=== PATIENT | male | born 1965 | race Caucasian/White ===

== ENCOUNTER 2024-02-01 13:11 | Inpatient (IN) ==
[2024-02-01] MEDS: SODIUM CHLORIDE 0.9% 1,000 ML IV STA (14:07)
--- NOTE | 2024-02-01 14:11 | Emergency Department Note ---
Impression & Plan Diarrhea, Chronic lymphocytic leukemia, JESSICA (acute kidney injury) ED Provider Note Diagnosis: Diarrhea, acute kidney injury, CLL Disposition: Admit CHIEF COMPLAINT: Diarrhea HPI: Patient is a 58-year-old male with history of CLL presenting with complaint of diarrhea and abdominal pain. Patient states at work multiple people had a GI bug last week and he thought he had just caught the same thing as they did. Patient states that his diarrhea has continued multiple times per day without blood present in it. Patient having crampy abdominal pain. Patient denies any fevers. Patient denies any abdominal surgeries prior. PAST MEDICAL HISTORY: See Below PAST SURGICAL HISTORY: See Below SOCIAL HISTORY: See Below HOME MEDICATIONS: See Below ALLERGIES: See Below VITALS: See Below PHYSICAL EXAMINATION: GENERAL: Well appearing, well nourished, NAD, non-toxic. EYE EXAM: Normal conjunctiva. OROPHARYNX: Moist mucus membranes. Grossly normal dentition. NECK: Supple, LUNGS: Clear to auscultation. Normal chest wall mechanics. HEART: NSR ABDOMEN: Abdomen soft, diffuse tenderness BACK: No CVA TTP. SKIN: No rashes and no bruising. UPPER EXTREMITIES: Upper extremities are grossly normal LOWER EXTREMITIES: Grossly normal, no edema. NEURO EXAM: A&O x3,, normal speech, moves all 4 extremities PSYCH: Cooperative MEDICAL DECISION MAKING: History obtained from: Patient ER Course: Patient is a 58-year-old male presenting with complaint of diarrhea. Patient has been having symptoms for the past 2 weeks time. Patient states multiple episodes per day without blood present. Patient states that he has CLL and is on oral chemotherapy daily. Patient states sick contacts of multiple people at work but they are really sick for 2 to 3 days and his symptoms have persisted. Patient having diffuse abdominal pain. Patient denies any prior abdominal surgeries. Patient has a white count of 20 and a creatinine of 2.8 today. I attempted to talk with case management team to look to see if there are any old records we can get from [employer] [facility] [facility] but there were none present when they look. I do not have a established baseline of these levels. Patient CT scan shows gastroenteritis state as well as start of potential partial small bowel obstruction which is less likely due to the patient having so many episodes of diarrhea over the past 2 weeks time. Patient is having no vomiting which makes this less likely as well. Patient had stool sample sent which are not resulted yet. Case discussed with Dr. Hsieh of hospital service accepts patient further treatment and evaluation Labs (independently interpreted) are significant for: Leukocytosis, elevated creatinine Medications given: Normal saline bolus Consultants: Hospitalist Triage Nursing notes reviewed and agree them. Vital Signs: reviewed and remarkable for: no significant abnormalities Past Med/Surg History Medical History A-fib HX- follows w/ Dr Caro [facility]- last visit ?2022 CLL (chronic lymphocytic leukemia) hx chemo- on Imbruvica daily, follows w/ Dr Wang, [facility] GERD (gastroesophageal reflux disease) History of COVID-2020- NO SYMPTOMS HTN (hypertension) Surgical History History of radiofrequency ablation procedure for cardiac arrhythmia afib- 2021- [facility] History of removal of Port-a-Cath Hx of colonoscopy Hx of lymph node biopsy Hx of tooth extraction Family History Other No family history of adverse response to anesthesia Social History Smoking Status: Never smoker Second Hand Exposure: No; Do You Dip or Chew Tobacco: Yes (CHEWS OCCASIONALLY- ADVISED); Hx Alcohol Use: No Hx Substance Use: No Preferred Language: Hebrew Communication Ability: Effective 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 Beliefs That Will Affect Care: None Current Living Situation: Alone Feels Safe at Home: Yes Assistive Devices: Denture - Upper, Denture - Lower and Glasses Allergies Allergies Allergy/AdvReac Type Severity Reaction Status Date / Time No Known Allergies Allergy Verified 03/08/23 11:22 Home Meds Home Medications Medication Instructions Recorded Confirmed aspirin 325 mg tablet 325 mg PO DAILY Pain 02/26/23 03/08/23 furosemide 20 mg tablet 20 mg PO [facility] 02/26/23 02/01/24 ibrutinib 420 mg tablet (Imbruvica) 420 mg PO HS 02/26/23 03/08/23 metoprolol succinate 100 mg 100 mg PO [facility] 02/26/23 02/01/24 tablet,extended release 24 hr multivitamin 1 tab PO [facility] 02/26/23 02/01/24 omeprazole 20 mg tablet,delayed 20 mg PO QAM Acid Reflux 02/26/23 02/01/24 release sacubitril 24 mg-valsartan 26 mg 1 tab PO BID 02/26/23 03/08/23 tablet (Entresto) spironolactone 25 mg tablet 25 mg PO QAM 02/26/23 02/01/24 vitamin B complex 1 tab PO QAM 02/26/23 03/08/23 ferrous sulfate 325 mg (65 mg 325 mg PO 3XWK 02/01/24 02/01/24 iron) tablet (FeroSul) ibrutinib 140 mg capsule 420 mg PO DAILY 02/01/24 02/01/24 (Imbruvica) sulfamethoxazole 800 1 tab PO MOWEFR 02/01/24 02/01/24 mg-trimethoprim 160 mg tablet vitamin B complex 1 cap PO DAILY 02/01/24 02/01/24 Results & Data (ED) Vital Signs Vital Signs - 24 hr 02/01/24 13:13 02/01/24 13:28 02/01/24 14:04 Temperature 36.5 C 36.6 C Temperature Source Temporal Artery Scan Oral Pulse Rate 71 61 Pulse Rate [Apical] 67 Pulse Rhythm Regular Pulse Strength Normal Respiratory Rate 17 18 Respiratory Effort / Characteristics Non-Labored Non-Labored Spontaneous Respiratory Depth Normal Normal Respiratory Pattern Regular Regular Blood Pressure 114/65 Blood Pressure [Right Arm] 101/55 L Blood Pressure Mean 81 Blood Pressure Mean [Right Arm] 70 Blood Pressure Position Sitting Blood Pressure Position [Right Arm] Lying Pulse Oximetry 100 99 Oxygen Delivery Method Room Air Room Air Sepsis Recent Fever Within 48 Hours No Sepsis New/Unexplained Change in Mental Status No Sepsis Action Taken by Nursing No Action Required 02/01/24 14:06 Temperature Temperature Source Pulse Rate 61 Pulse Rate [Apical] Pulse Rhythm Pulse Strength Respiratory Rate Respiratory Effort / Characteristics Respiratory Depth Respiratory Pattern Blood Pressure Blood Pressure [Right Arm] Blood Pressure Mean Blood Pressure Mean [Right Arm] Blood Pressure Position Blood Pressure Position [Right Arm] Pulse Oximetry 98 Oxygen Delivery Method Room Air Sepsis Recent Fever Within 48 Hours Sepsis New/Unexplained Change in Mental Status Sepsis Action Taken by Nursing Laboratory Data 02/01/24 13:34 02/01/24 13:34 Lab Results 02/01/24 Range/Units 13:34 WBC 20.11 H (4.8-10.8) K/ul RBC 4.73 (4.70-6.10) M/uL Hgb 13.1 L (14.0-18.0) g/dl Hct 39.1 L (42.0-52.0) % MCV 82.7 (80.0-100.0) fL MCH 27.7 (25.0-34.0) pg MCHC 33.5 (32.0-36.0) g/dL RDW Std Deviation 46.1 (36.4-46.3) fL RDW Coeff of Kayy 15.3 H (11.5-14.5) % Plt Count 253 (130-400) K/uL MPV 9.8 (9.4-12.4) fL Immature Gran % (Auto) 1.7 % Neut % (Auto) 77.4 % Lymph % (Auto) 16.2 % Ransom % (Auto) 4.0 % Eos % (Auto) 0.3 % Baso % (Auto) 0.4 % Neut # (Auto) 15.57 H (1.40-6.50) K/uL Lymph # (Auto) 3.26 (1.20-3.40) K/uL Ransom # (Auto) 0.80 H (0.11-0.59) K/uL Eos # (Auto) 0.06 (0.00-0.50) K/uL Baso # (Auto) 0.08 (0.00-0.20) K/uL Immature Gran # (Auto) 0.34 H (0.01-0.20) K/uL Sodium 139 (136-145) mmol/L Potassium 3.8 (3.5-5.1) mmol/L Chloride 112 H (98-107) mmol/L Carbon Dioxide 15 L (21-32) mmol/L Anion Gap 12 H (3-11) BUN 38 H (6-23) mg/dl Creatinine 2.89 H (0.6-1.4) mg/dl Est Cr Clr Drug Dosing 29.8 ml/min Est GFR ( Amer) 26.2 ml/min Est GFR (Non-Af Amer) 22.6 ml/min BUN/Creatinine Ratio 13.1 (10-20) Glucose 80 (70-99(Fasting)) mg/dl Calcium 9.3 (8.6-10.3) mg/dl Total Bilirubin 0.4 (0.2-1.0) mg/dl AST 8 L (13-39) U/L ALT 6 L (7-52) U/L Alkaline Phosphatase 171 H (34-104) U/L Total Protein 6.5 (6.0-8.3) gm/dl Albumin 4.0 (3.4-5.0) gm/dl Globulin 2.5 (2.5-4.0) gm/dl Albumin/Globulin Ratio 1.6 (0.9-2) Lipase 41 (11-82) U/L Administered Medications Discontinued Medications Sodium Chloride (Nss) 1,000 mls @ 999 mls/hr IV .Q1H1M STA Stop: 02/01/24 14:52 Last Infusion: 02/01/24 16:05 Dose: Infused Documented By: Admin: 02/01/24 14:07 Dose: 999 mls/hr Documented By: ARLINE Imaging Data Radiologist's Impression: Abdomen/Pelvis CT 02/01/24 15:[address] WITHOUT CONTRAST CT DOSE: 1191.22 mGy.cm HISTORY: diarrhea for 2 weeks, TECHNIQUE: Multiaxial CT images of the abdomen and pelvis were performed without contrast. A dose lowering technique was utilized adhering to the principles of ALARA. COMPARISON STUDY: None. FINDINGS: Tree-in-bud nodular opacities within the lung bases most pronounced within the left lower lobe. No pneumoperitoneum. No pneumatosis. No acute fractures. Small fat-containing left femoral hernia. A small diverticulum at the third portion of the duodenum. The unenhanced liver, gallbladder, pancreas, spleen, and adrenal glands unremarkable. No renal or ureteral stones. No hydronephrosis. There is a 1 cm exophytic hypodense lesion within the lower pole of the right kidney on image 202 and a 7 mm exophytic hypodense lesion within the lower pole the left kidney on image 164. The 1 cm right renal lesion favors a cyst but is technically indeterminate on this noncontrast study. The 7 mm lesion within the left kidney does not clearly represent a simple cyst. Therefore, follow-up renal ultrasound or dedicated renal MRI is recommended for further evaluation of the left renal lesion. Normal caliber abdominal aorta. Mild retroperitoneal lymphadenopathy with the dominant lymph nodes measuring 1 cm short axis diameter. Tiny fat-containing umbilical hernia. No significant pelvic lymphadenopathy. Bladder wall thickening is likely due to underdistention and chronic outlet obstruction from the enlarged prostate gland. No pelvic free fluid. No bowel wall thickening. Fluid-filled nondilated loops of large and small bowel seen throughout the abdomen. Single prominent loop of small bowel within the deep pelvis on image 321 measures 2.9 cm. However, no transition point to suggest a small bowel obstruction at this time. There is a 5 mm appendicolith within the mid appendix. No evidence for acute appendicitis. IMPRESSION: 1. Fluid-filled loops of large and small bowel seen throughout the abdomen. This suggests a gastroenteritis/diarrheal illness. 2. A prominent loop of small bowel within the deep pelvis without a definite transition point. A partial small bowel obstruction is considered less likely but not entirely excluded. If the patient's symptoms progress consider follow-up abdomen and pelvis CT. 3. Mild retroperitoneal lymphadenopathy which is nonspecific. This could be related to the suspected gastroenteritis. 3 month abdomen and pelvis CT follow- up recommended to ensure resolution. 4. A 7 mm indeterminate lesion within the left kidney. Follow-up nonemergent dedicated renal ultrasound or renal MRI is recommended for further evaluation. 5. Tree-in-bud nodular opacities within the lung bases most pronounced within the left lower lobe. This suggests a mild chronic infectious bronchiolitis. 6. Additional findings as described above. ACT 112: Positive. There are findings on this exam that require communication between the performing entity and the patient following Patient Test Result Information Act ([place] Act 112) guidelines. Electronically signed by: Romel Bess M.D. 02/01/2024 4:04 PM Discharge Plan Visit Data Chief Complaint: Diarrhea Stated Complaint: DIARRHEA ED Provider: Bobby Sapp Discharge Problem: Diarrhea, Chronic lymphocytic leukemia, JESSICA (acute kidney injury) Forms Stand Alone Forms: [facility] Prescriptions Prescriptions: No Action multivitamin Tablet 1 tab PO QAM aspirin 325 mg Tablet 325 mg PO DAILY metoprolol succinate 100 mg Tablet Extended Release 24 Hr 100 mg PO QAM spironolactone 25 mg Tablet 25 mg PO QAM vitamin B complex Tablet 1 tab PO QAM furosemide 20 mg Tablet 20 mg PO QAM omeprazole 20 mg Tablet,Delayed Release (Dr/Ec) 20 mg PO QAM Entresto 24-26 mg Tablet 1 tab PO BID Imbruvica 420 mg Tablet 420 mg PO HS ferrous sulfate [FeroSul] 325 mg (65 mg iron) tablet 325 mg PO 3XWK Imbruvica 140 mg capsule 420 mg PO DAILY sulfamethoxazole-trimethoprim 800-160 mg tablet 1 tab PO MOWEFR vitamin B complex [Super B Complex] Capsule 1 cap PO DAILY Referrals Referrals: Anne Marie Mendoza CRNP [Primary Care Provider] -
[2024-02-01 14:15] LABS: Basophils # (auto) 0.08 K/uL (0.00-0.20); Basophils % (auto) 0.4 %; Eosinophils # (auto) 0.06 K/uL (0.00-0.50); Eosinophils % (auto) 0.3 %; Hematocrit (blood only) 39.1 % (42.0-52.0); Hemoglobin 13.1 g/dl (14.0-18.0); Immature Granulocytes # (auto) 0.34 K/uL (0.01-0.20); Immature Granulocytes % (auto) 1.7 %; Lymphocytes # (auto) 3.26 K/uL (1.20-3.40); Lymphocytes % (auto) 16.2 %; Mean Corpuscular Hemoglobin 27.7 pg (25.0-34.0); Mean Corpuscular Hgb Conc 33.5 g/dL (32.0-36.0); Mean Corpuscular Volume 82.7 fL (80.0-100.0); Mean Platelet Volume 9.8 fL (9.4-12.4); Neutrophils # (auto) 15.57 K/uL (1.40-6.50); Neutrophils % (auto) 77.4 %; Platelet Count 253 K/uL (130-400); RDW Coefficient of Variation 15.3 % (11.5-14.5); RDW Standard Deviation 46.1 fL (36.4-46.3); Red Blood Count 4.73 M/uL (4.70-6.10); White Blood Count 20.11 K/ul (4.8-10.8)
[2024-02-01 14:33] LABS: Albumin Globulin Ratio 1.6 (0.9-2); BUN Creatinine Ratio 13.1 (10-20); Bilirubin,Total 0.4 mg/dl (0.2-1.0); Calcium 9.3 mg/dl (8.6-10.3); Creatinine Clr Calc Pharmacy 29.8 ml/min; Est GFR (African American) 26.2 ml/min; Est GFR (Non-African American) 22.6 ml/min; Globulin 2.5 gm/dl (2.5-4.0); Potassium 3.8 mmol/L (3.5-5.1); Total Protein 6.5 gm/dl (6.0-8.3)
--- NOTE | 2024-02-01 16:06 | CT Scan Report ---
ABDOMEN AND PELVIS CT WITHOUT CONTRAST CT DOSE: 1191.22 mGy.cm HISTORY: diarrhea for 2 weeks, TECHNIQUE: Multiaxial CT images of the abdomen and pelvis were performed without contrast. A dose lo wering technique was utilized adhering to the principles of ALARA. COMPARISON STUDY: None. FINDINGS: Tree-in-bud nodular opacities within the lung bases most pronounced within the left lower l obe. No pneumoperitoneum. No pneumatosis. No acute fractures. Small fat-containing left femoral herni a. A small diverticulum at the third portion of the duodenum. The unenhanced liver, gallbladder, panc reas, spleen, and adrenal glands unremarkable. No renal or ureteral stones. No hydronephrosis. There is a 1 cm exophytic hypodense lesion within the lower pole of the right kidney on image 202 and a 7 m m exophytic hypodense lesion within the lower pole the left kidney on image 164. The 1 cm right renal lesion favors a cyst but is technically indeterminate on this noncontrast study. The 7 mm lesion wit hin the left kidney does not clearly represent a simple cyst. Therefore, follow-up renal ultrasound o r dedicated renal MRI is recommended for further evaluation of the left renal lesion. Normal caliber abdominal aorta. Mild retroperitoneal lymphadenopathy with the dominant lymph nodes measuring 1 cm sh ort axis diameter. Tiny fat-containing umbilical hernia. No significant pelvic lymphadenopathy. Bladd er wall thickening is likely due to underdistention and chronic outlet obstruction from the enlarged prostate gland. No pelvic free fluid. No bowel wall thickening. Fluid-filled nondilated loops of larg e and small bowel seen throughout the abdomen. Single prominent loop of small bowel within the deep p [place] on image 321 measures 2.9 cm. However, no transition point to suggest a small bowel obstruction at this time. There is a 5 mm appendicolith within the mid appendix. No evidence for acute appendici tis. IMPRESSION: 1. Fluid-filled loops of large and small bowel seen throughout the abdomen. This suggests a gastroent eritis/diarrheal illness. 2. A prominent loop of small bowel within the deep pelvis without a definite transition point. A part ial small bowel obstruction is considered less likely but not entirely excluded. If the patient's sym ptoms progress consider follow-up abdomen and pelvis CT. 3. Mild retroperitoneal lymphadenopathy which is nonspecific. This could be related to the suspected gastroenteritis. 3 month abdomen and pelvis CT follow-up recommended to ensure resolution. 4. A 7 mm indeterminate lesion within the left kidney. Follow-up nonemergent dedicated renal ultrasou nd or renal MRI is recommended for further evaluation. 5. Tree-in-bud nodular opacities within the lung bases most pronounced within the left lower lobe. Th is suggests a mild chronic infectious bronchiolitis. 6. Additional findings as described above. ACT 112: Positive. There are findings on this exam that require communication between the performing entity and the patient following Patient Test Result Information Act ([place] Act 112) guidelines. Electronically signed by: Romel Bess M.D. 02/01/2024 4:04 PM
[2024-02-01] MEDS: SODIUM CHLORIDE 0.9% 1,000 ML IV ONE (16:49)
[2024-02-01 17:20] LABS: Appearance Urine Clear (Clear); Bacteria Urine Automated None Seen (None Seen); Bilirubin Urine Negative (Negative); Blood Urine Negative (Negative); Cast Urine Automated >20 /lpf (0-2); Color Urine Dark Yellow; Glucose Urine UA Negative (Negative); Ketones Urine Negative (Negative); Leukocyte Esterase Urine Negative (Negative); Nitrite Urine Negative (Negative); Protein Urine 1+ (Negative); RBC Urine Automated 0-2 /hpf (0-2); Specific Gravity Urine 1.019 (1.000-1.030); Urobilinogen Urine Negative (Negative); WBC Urine Automated 0-5 /hpf (0-5); White Blood Cell Casts Urine Present /lpf (None Prsent); pH Urine 5.5 (4.5-7.5)
--- NOTE | 2024-02-01 17:32 | History & Physical Report ---
Date of Service February 01, 2024 Assessment & Plan (1) Acute diarrhea: Plan: Has been having diarrhea since sixth of this month up to 6 times a day Has had nausea and vomited once so far Significant anorexia and has not been eating or drinking Stool culture will be sent Likely secondary to viral infectious diarrhea Will rule out any bacterial causes If no causes are found he will be given Imodium to control diarrhea Electrolytes and fluid replacement (2) JESSICA (acute kidney injury): Plan: Has acute renal failure with BUN and creatinine to be 38/2.89 Dehydration is the likely cause and is complicated by use of Entresto, spironolactone, furosemide and Bactrim Above medications will be on hold Will give adequate IV fluid Monitor PRP-if the condition does not improve will need nephro evaluation (3) CLL (chronic lymphocytic leukemia): Plan: Chronic lymphatic leukemia On oral treatment Sees Dr. Wang in [place]-likely not a [facility] provider Will continue the current management and the diarrhea is over (4) History of atrial fibrillation: Plan: History of atrial fibrillation is status post ablation years ago Has been on beta-brianda and will continue IV metoprolol if he cannot take anything orally (5) SBO (small bowel obstruction): Plan: CT of the abdomen did show distention of the small and large bowel with ileitis No significant point of obstruction Will keep him n.p.o. Electrolyte supplementation if needed May need surgery evaluation if condition does not improve GERD Continue with PPI Hypertension Blood pressure on the lower side Will try to continue metoprolol for now And hold other medications DVT prophylaxis Lovenox CODE STATUS Full History of Present Illness Chief Complaint: Diarrhea has since 01/22/2024 with weakness , tiredness and abdominal pain with bloating Primary Care Provider: NYLA Contreras He is a 58 years old male with significant past medical history of atrial fibrillation status post ablation, CLL with ongoing oral chemotherapy, GERD, hypertension apparently has been complaining of diarrhea since sixth of this month. His diarrhea seems to be watery with some discomfort/pain in the abdomen and some distention. The diarrhea could be up to 8 times a day and he has anorexia with nausea and vomited once with it. No history of blood in the stool, no fever and or chills no history of travel and no history of any other persons involved with diarrhea that he mixes with. Has been eating and drinking that way he is supposed to be. Denies any chest pain, palpitation or shortness of breath. CT of the abdomen did show possible ileitis with intestinal distention and noted to have acute renal failure likely secondary to dehydration and complicated by use of ARB, spironolactone and also Bactrim. Allergies Allergy/AdvReac Type Severity Reaction Status Date / Time amoxicillin AdvReac Diarrhea Verified 02/01/24 16:51 Home Medications Medication Instructions Recorded Confirmed Type aspirin 325 mg tablet 325 mg PO DAILY Pain 02/26/23 02/01/24 History furosemide 20 mg tablet 20 mg PO QAM 02/26/23 02/01/24 History metoprolol succinate 100 mg 100 mg PO QAM 02/26/23 02/01/24 History tablet,extended release 24 hr multivitamin 1 tab PO QAM 02/26/23 02/01/24 History omeprazole 20 mg tablet,delayed 20 mg PO QAM Acid Reflux 02/26/23 02/01/24 History release sacubitril 24 mg-valsartan 26 mg 1 tab PO BID 02/26/23 02/01/24 History tablet (Entresto) spironolactone 25 mg tablet 25 mg PO QAM 02/26/23 02/01/24 History ferrous sulfate 325 mg (65 mg 325 mg PO 3XWK 02/01/24 02/01/24 History iron) tablet (FeroSul) ibrutinib 140 mg capsule 420 mg PO DAILY 02/01/24 02/01/24 History (Imbruvica) sulfamethoxazole 800 1 tab PO MOWEFR 02/01/24 02/01/24 History mg-trimethoprim 160 mg tablet vitamin B complex 1 cap PO DAILY 02/01/24 02/01/24 History Past Med/Surg History Medical History A-fib HX- follows w/ Dr Caro [facility]- last visit ?2022 CLL (chronic lymphocytic leukemia) hx chemo- on Imbruvica daily, follows w/ Dr Wang [facility] GERD (gastroesophageal reflux disease) History of COVID-2020- NO SYMPTOMS HTN (hypertension) Surgical History History of radiofrequency ablation procedure for cardiac arrhythmia afib- 2021- [facility] [place] History of removal of Port-a-Cath Hx of colonoscopy Hx of lymph node biopsy Hx of tooth extraction Family History Other No family history of adverse response to anesthesia Social History Smoking Status: Never smoker Second Hand Exposure: No; Do You Dip or Chew Tobacco: Yes (CHEWS OCCASIONALLY- ADVISED); Hx Alcohol Use: No Hx Substance Use: No Preferred Language: Syriac Communication Ability: Effective Registered Nurse Renal Required: No Beliefs That Will Affect Care: None Current Living Situation: Alone Feels Safe at Home: Yes Assistive Devices: Denture - Upper, Denture - Lower and Glasses Review of Systems Review of Systems: All systems reviewed and are unremarkable except mentioned in H&P Physical Exam Physical Exam: Sitting at the edge of the bed without any acute distress Constitutional: well developed, well nourished, + ill appearing and average body habitus Eyes: PERRL, conjunctivae normal, anicteric sclerae ENMT: external ear and nose normal, oropharynx normal Neck: trachea midline, no thyromegaly Cardiovascular: Rate/Rhythm: regular rate and regular rhythm; not tachycardic Heart Sounds: normal S1 and normal S2; no murmur Extremities: no edema Gastrointestinal (Abdomen): Inspection/Auscultation: + abdomen distended; + abnormal bowel sounds (Decreased) Percussion/Palpation: abdomen soft; abdomen nontender and no guarding Musculoskeletal: No acute arthritis involving any of the joint Neurologic: normal touch/pain/proprioception and moves all extremities; no focal motor deficits Psychiatric: A+Ox3, euthymic affect Lymphatic: no cervical or axillary lymphadenopathy Results & Data Results & Data Vital Signs (Past 12 Hours) Vital Signs Temp Pulse Pulse Resp BP BP Pulse Ox 02/01/24 16:47 57 L 18 99/60 L 100 02/01/24 14:06 61 98 02/01/24 14:04 61 02/01/24 13:28 36.6 C 67 18 101/55 L 99 02/01/24 13:13 36.5 C 71 17 114/65 100 O2 Del Method 02/01/24 16:47 Room Air 02/01/24 14:06 Room Air 02/01/24 14:04 02/01/24 13:28 Room Air 02/01/24 13:13 Room Air Laboratory Results Short CBC 02/01/24 Range/Units 13:34 WBC 20.11 H (4.8-10.8) K/ul Hgb 13.1 L (14.0-18.0) g/dl Hct 39.1 L (42.0-52.0) % Plt Count 253 (130-400) K/uL BMP 02/01/24 13:34 Sodium 139 Potassium 3.8 Chloride 112 H Carbon Dioxide 15 L BUN 38 H Creatinine 2.89 H Glucose 80 Calcium 9.3 Liver Function 02/01/24 Range/Units 13:34 Total Bilirubin 0.4 (0.2-1.0) mg/dl AST 8 L (13-39) U/L ALT 6 L (7-52) U/L Alkaline Phosphatase 171 H (34-104) U/L Albumin 4.0 (3.4-5.0) gm/dl Urine 02/01/24 Range/Units 16:01 Urine Color Dark Yellow Urine Appearance Clear (Clear) Urine pH 5.5 (4.5-7.5) Ur Specific [place] 1.019 (1.000-1.030) Urine Protein 1+ H (Negative) Urine Glucose (UA) Negative (Negative) Medications Administered Current Inpatient Medications Enoxaparin Sodium (Enoxaparin Inj 30 Mg/0.3 Ml Syr) 30 mg SQ QAM DALILA Stop: 03/02/24 17:29 Sodium Chloride (Nss) 1,000 mls @ 999 mls/hr IV .Q1H1M ONE Stop: 02/01/24 17:41 Last Admin: 02/01/24 16:49 Dose: 999 mls/hr Code Status & VTE Plan VTE Prophylaxis Plan VTE Prophylaxis will be ordered: Yes
[2024-02-01] MEDS ORDERED: ONDANSETRON INJ 2 MG/ML 2 ML VIAL IV PRN (17:33)
[2024-02-01 17:34] LABS: Adenovirus F 40/41 PCR Not Detected (NotDetected); Astrovirus PCR Not Detected (NotDetected); Campylobacter PCR Not Detected (NotDetected); Cryptosporidium PCR Not Detected (NotDetected); Cyclospora cayetanensis PCR Not Detected (NotDetected); Entamoeba histolytica PCR Not Detected (NotDetected); Enteroaggregative E.coli(EAEC) Not Detected (NotDetected); Enteropathogenic E.coli (EPEC) Not Detected (NotDetected); Enterotoxigenic E.coli (ETEC) Not Detected (NotDetected); Giardia lamblia PCR Not Detected (NotDetected); Norovirus GI/GII PCR Not Detected (NotDetected); Plesiomonas shigelloides PCR Not Detected (NotDetected); Rotavirus A PCR Not Detected (NotDetected); Salmonella PCR Not Detected (NotDetected); Sapovirus PCR Not Detected (NotDetected); Shiga-like Toxin E.coli (STEC) Not Detected (NotDetected); Shigella/Enteroinvasive E.coli Not Detected (NotDetected); Vibrio cholerae PCR Not Detected (NotDetected); Vibrio species PCR Not Detected (NotDetected); Yersinia enterocolitica PCR Not Detected (NotDetected)
[2024-02-01 18:12] LABS: Magnesium 1.8 mg/dl (1.7-2.4); Phosphorus 5.8 mg/dl (2.5-4.9)
[2024-02-01] MEDS: METOPROLOL TARTRATE 1 MG/ML VIAL IV SCH (18:31)
[2024-02-01] MEDS: LACTATED RINGER'S 1,000 ML IV SCH (18:32)
[2024-02-01] MEDS ORDERED: METOPROLOL TARTRATE 1 MG/ML VIAL IV PRN (19:39)
[2024-02-01] MEDS: ENOXAPARIN INJ 30 MG/0.3 ML SYR SQ SCH (22:11)
[2024-02-02 05:56] LABS: Basophils # (auto) 0.08 K/uL (0.00-0.20); Basophils % (auto) 0.6 %; Eosinophils # (auto) 0.08 K/uL (0.00-0.50); Eosinophils % (auto) 0.6 %; Hematocrit (blood only) 34.5 % (42.0-52.0); Hemoglobin 11.6 g/dl (14.0-18.0); Immature Granulocytes # (auto) 0.14 K/uL (0.01-0.20); Lymphocytes # (auto) 3.47 K/uL (1.20-3.40); Lymphocytes % (auto) 24.4 %; Mean Corpuscular Hemoglobin 27.4 pg (25.0-34.0); Mean Corpuscular Hgb Conc 33.6 g/dL (32.0-36.0); Mean Corpuscular Volume 81.6 fL (80.0-100.0); Mean Platelet Volume 9.4 fL (9.4-12.4); Monocytes # (auto) 0.61 K/uL (0.11-0.59); Monocytes % (auto) 4.3 %; Neutrophils # (auto) 9.86 K/uL (1.40-6.50); Neutrophils % (auto) 69.1 %; Platelet Count 209 K/uL (130-400); RDW Coefficient of Variation 15.2 % (11.5-14.5); RDW Standard Deviation 45.2 fL (36.4-46.3); Red Blood Count 4.23 M/uL (4.70-6.10); White Blood Count 14.24 K/ul (4.8-10.8)
[2024-02-02 06:11] LABS: BUN Creatinine Ratio 17.3 (10-20); Calcium 8.6 mg/dl (8.6-10.3); Creatinine Clr Calc Pharmacy 53.2 ml/min; Est GFR (African American) 52.7 ml/min; Est GFR (Non-African American) 45.5 ml/min; Magnesium 1.6 mg/dl (1.7-2.4); Phosphorus 3.5 mg/dl (2.5-4.9); Potassium 3.3 mmol/L (3.5-5.1)
[2024-02-02] MEDS: MULTIVITAMIN TAB PO SCH (07:14)
[2024-02-02] MEDS: PANTOprazole 40 MG TAB PO SCH (07:14)
[2024-02-02] MEDS: METOPROLOL SUCC 50MG EXT REL TAB PO SCH (07:23)
[2024-02-02] MEDS: VITAMIN B COMPLEX TAB PO SCH (08:14)
[2024-02-02] MEDS ORDERED: LOPERAMIDE HCL 2 MG CAP PO PRN (08:30)
[2024-02-02] MEDS: MAGNESIUM SULFATE / D5W 1 GM/100 ML BAG IV ONE (08:51)
[2024-02-02] MEDS: POTASSIUM CHLORIDE CRTAB 20 MEQ TABCR PO ONE (08:51)
--- NOTE | 2024-02-02 09:35 | XRay Report ---
KUB CLINICAL HISTORY: Generalized abdominal pain. Obstruction. FINDINGS: 3 AP, portable, supine abdominal radiographs are correlated with abdominal CT dated 02/01/20 24. There is persistent gaseous distention of the small bowel loops which measure up to 3 cm diameter . Gas is seen throughout the colon. No evidence of intraperitoneal free air is identified on these [place] images. There are no abnormal abdominal calcifications. The bony structures appear intact. Moder ate lumbosacral spondylosis is observed. IMPRESSION: There is persistent gaseous distention of the small bowel loops as above. When correlated with yesterday's CT scan this could represent a nonspecific enteritis. No high-grade bowel obstructi on is identified. A partial small bowel obstruction is not excluded and clinical correlation will be required. Electronically signed by: Rolando Leone M.D. 02/02/2024 9:33 AM
--- NOTE | 2024-02-02 10:40 | Electrocardiogram Report ---
Test Reason : Blood Pressure : / mmHG Vent. Rate : 057 BPM Atrial Rate : 057 BPM P-R Int : 156 ms QRS Dur : 106 ms QT Int : 446 ms P-R-T Axes : 081 025 007 degrees QTc Int : 434 ms Sinus bradycardia Nonspecific T wave abnormality Abnormal ECG When compared with ECG of 27-MAR-2015 17:01, Nonspecific T wave abnormality now evident in Anterior leads Confirmed by Tarik Gant ([id number]) on 02/02/2024 10:40:00 AM Referred By: REFERRED SELF Confirmed By:Michael Gant
--- NOTE | 2024-02-02 12:14 | Surgery Consultation ---
Date of Consultation February 02, 2024 Assessment & Plan (1) Acute diarrhea: His CT and X-ray images and results were personally viewed and interpreted by myself There is no transition point and his clinical picture is more of a gastroenteritis He has no emesis and has been having BM's Clears and advance to low fiber diet for dinner or breakfast tomorrow No plans for any surgical intervention History of Present Illness Reason for Consultation: Small bowel obstruction Attending Physician: Devin Castrejon MD History of Present Illness This is a 58 yo male who was admitted yesterday with gastroenteritis versus PSBO. He states for the past couple weeks he has had diarrhea and about a week ago he had one episode of emesis. He states something was going around at work as many people had similar symptoms. He has never had abdominal surgery. He is feeling better today without any abdominal pain. He has had two BM's today. De nies any fevers or chills. No melena or hematochezia. Allergies Allergy/AdvReac Type Severity Reaction Status Date / Time amoxicillin AdvReac Diarrhea Verified 02/01/24 16:51 Home Medications Medication Instructions Recorded Confirmed Type aspirin 325 mg tablet 325 mg PO DAILY Pain 02/26/23 02/01/24 History furosemide 20 mg tablet 20 mg PO QAM 02/26/23 02/01/24 History metoprolol succinate 100 mg 100 mg PO QAM 02/26/23 02/01/24 History tablet,extended release 24 hr multivitamin 1 tab PO QAM 02/26/23 02/01/24 History omeprazole 20 mg tablet,delayed 20 mg PO QAM Acid Reflux 02/26/23 02/01/24 History release sacubitril 24 mg-valsartan 26 mg 1 tab PO BID 02/26/23 02/01/24 History tablet (Entresto) spironolactone 25 mg tablet 25 mg PO QAM 02/26/23 02/01/24 History ferrous sulfate 325 mg (65 mg 325 mg PO 3XWK 02/01/24 02/01/24 History iron) tablet (FeroSul) ibrutinib 140 mg capsule 420 mg PO DAILY 02/01/24 02/01/24 History (Imbruvica) sulfamethoxazole 800 1 tab PO MOWEFR 02/01/24 02/01/24 History mg-trimethoprim 160 mg tablet vitamin B complex 1 cap PO DAILY 02/01/24 02/01/24 History Patient History Medical History History of COVID-2020- NO SYMPTOMS GERD (gastroesophageal reflux disease) HTN (hypertension) A-fib HX- follows w/ Dr Caro [facility]- last visit ?2022 CLL (chronic lymphocytic leukemia) hx chemo- on Imbruvica daily, follows w/ [facility] Surgical History Hx of lymph node biopsy History of removal of Port-a-Cath Hx of colonoscopy Hx of tooth extraction History of radiofrequency ablation procedure for cardiac arrhythmia afib- 2021- [facility] Family History Other No family history of adverse response to anesthesia Social History Smoking Status: Never smoker Second Hand Exposure: No; Do You Dip or Chew Tobacco: Yes (CHEWS OCCASIONALLY- ADVISED); Hx Alcohol Use: No Hx Substance Use: No Preferred Language: Canadian Communication Ability: Effective 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 Beliefs That Will Affect Care: None Current Living Situation: Alone Other Information That Helps Us Care for You: No Feels Safe at Home: Yes Safety Concerns: Feels Safe At This Time Assistive Devices: None Review of Systems Constitutional: no fever and no chills Eyes: no blind spots and no worsening vision Ear, Nose, Mouth, Throat: no ear pain and no hearing loss Respiratory: no cough and no dyspnea Cardiovascular: no chest pain and no dyspnea on exertion Gastrointestinal: + diarrhea/loose stools; no abdominal pa in, no nausea, no vomiting, no constipation, no blood in stools and no melena Genitourinary: no dysuria or no urinary incontinence Musculoskeletal: no back pain and no neck pain Integumentary: no acne and no skin ulcer Neurologic: no headache(s) and no memory loss Psychiatric: no behavioral changes and no anhedonia Hematologic / Lymphatic: no easy bleeding and no easy bruising Physical Exam Constitutional: WD/WN, vitals as above Eyes: PERRL, conjunctivae normal, anicteric sclerae ENMT: external ear and nose normal, oropharynx normal Neck: trachea midline, no thyromegaly Respiratory: normal respiratory effort, lungs clear to auscultation Cardiovascular: RRR, no murmur, no edema Gastrointestinal (Abdomen): Inspection/Auscultation: abdomen normal to inspection; abdomen not distended Percussion/Palpation: abdomen soft; abdomen nontender and no guarding Musculoskeletal: no cyanosis or clubbing, extremities motor strength 5/5 Skin: no rashes, warm and dry Neurologic: PERRL, EOMI, accommodation nl, no face palsy, no dysarthria Psychiatric: A+Ox3, euthymic affect Results & Data Vital Signs (Past 12 Hours) Vital Signs Temp Pulse Pulse Resp BP Pulse Ox O2 Del Method 02/02/24 11:30 36.3 C L 66 16 121/71 100 Room Air 02/02/24 08:00 57 L 02/02/24 07:21 36.5 C 59 L 18 112/67 100 Room Air 02/02/24 04:00 36.7 C 61 20 96/57 L 95 Room Air 02/02/24 00:47 56 L PG Care Time/CCT Total # of Minutes Spent Total Time Spent with Patient: Total time spent is greater than 50% in coordination of care (as documented) at patient's floor/unit and/or counseling patient: Coding Level of Care Code 72100 IN/OBS CONSULT LVL 5,80M Diagnoses Acute diarrhea R19.7
--- NOTE | 2024-02-02 14:17 | Ultrasound Report ---
RENAL ULTRASOUND HISTORY: Follow-up renal lesion. Abnormal CT. COMPARISON: Abdomen and pelvis CT 02/01/2024. FINDINGS: Right kidney: 11.2 cm. There is a 1 cm exophytic lower pole cyst. No solid renal masses identified. N o hydronephrosis. Normal corticomedullary differentiation and cortical thickness. Left kidney: 10.3 cm. There is 9 mm lower pole lesion which also favors a cyst. This corresponds to t he CT abnormality. No hydronephrosis. Normal corticomedullary differentiation and cortical thickness. Bladder: No bladder wall thickening. The bilateral ureteral jets were not identified. The prostate gl and is enlarged. IMPRESSION: 1. A 9 mm left renal lower pole lesion which favors a cyst. This corresponds to the CT abnormality. O ne year follow-up is recommended to ensure stability due to its small size. 2. A 1 cm right lower pole cyst. 3. Prostatomegaly. ACT 112: Negative or not required by law. Electronically signed by: Romel Bess M.D. 02/02/2024 2:16 PM
--- NOTE | 2024-02-02 17:00 | Hospitalist Progress Note ---
Date of Service February 02, 2024 Assessment & Plan (1) Acute diarrhea: Plan: Diarrhea Unclear etiology DD: Gastroenteritis, ? Secondary to home medications --CT ABD: Fluid-filled loops of large and small bowel seen throughout the abdomen. This suggests a gastroenteritis/diarrheal illness. A prominent loop of small bowel within the deep pelvis without a definite transition point. A partial small bowel obstruction is considered less likely but not entirely excluded. If the patient's symptoms progress consider follow-up abdomen and pelvis CT. Mild retroperitoneal lymphadenopathy which is nonspecific. This could be related to the suspected gastroenteritis. 3 month abdomen and pelvis CT follow-up recommended to ensure resolution. -- Stool PCR negative --Stool for C. difficile negative Continue IV fluids Consider GI evaluation if needed Imodium as needed Will need repeat CT as outpatient to ensure resolution of lymphadenopathy (2) JESSICA (acute kidney injury): Plan: Likely prerenal secondary to GI losses Hold home diuretics, Entresto Also hold Bactrim for now Renal function slowly improving Continue IV fluids Avoid nephrotoxic agents as able (3) CLL (chronic lymphocytic leukemia): Plan: Chronic lymphatic leukemia On oral treatment Sees Dr. Wang oncology as outpatient Resume home medications as able (4) History of atrial fibrillation: Plan: History of atrial fibrillation S/P ablation years ago Continue metoprolol Has been on beta-brianda and will continue Hypomagnesemia Replete electrolytes as needed (5) SBO (small bowel obstruction): Plan: Suspected partial SBO CT ABD as above Appreciate surgery input Advance diet as able Monitor Renal cyst Renal USD:9 mm left renal lower pole lesion which favors a cyst. This cor responds to the CT abnormality. One year follow-up is recommended to ensure stability due to its small size. A 1 cm right lower pole cyst. Follow-up as outpatient GERD Continue with PPI Hypertension Continue metoprolol Monitor DVT prophylaxis Lovenox SQ CODE STATUS Full Code Admission and Anticipated Discharge Date Admission Date: February 01, 2024 Subjective Patient is seen and examined at bedside States having 2 bowel movements today Abdominal pain much improved Denies any nausea, vomiting, chest pain, dyspnea No other complaints Renal function slowly improving Review of Systems Review of Systems: All systems reviewed & are unremarkable except as noted in Subjective Physical Exam Physical Exam: Physical Exam: Vitals signs as noted above General Appearance:Moderately built and nourished, no apparent distress Head: normocephalic, Atraumatic Eyes: normal inspection, EOMI Neck: supple, Trachea midline Respiratory/Chest: Normal breath sounds, CTA, No accessory muscle use Cardiovascular: S1, S2, No murmur Abdomen/GI:Soft, Non tender, Bowel sounds present Extremities/Musculoskeletal:normal inspection, no edema Neurologic/Psych:AAOX3, grossly no focal neurological deficits Skin: normal color, warm Results & Data Results & Data Vital Signs (Past 12 Hours) Vital Signs Temp Pulse Pulse Resp BP Pulse Ox O2 Del Method 02/02/24 15:35 59 L 02/02/24 14:58 36.1 C L 60 16 122/72 99 Room Air 02/02/24 11:30 36.3 C L 66 16 121/71 100 Room Air 02/02/24 08:00 57 L 02/02/24 07:21 36.5 C 59 L 18 112/67 100 Room Air Laboratory Results Short CBC 02/02/24 Range/Units 04:51 WBC 14.24 H (4.8-10.8) K/ul Hgb 11.6 L (14.0-18.0) g/dl Hct 34.5 L (42.0-52.0) % Plt Count 209 (130-400) K/uL BMP 02/02/24 04:51 Sodium 139 Potassium 3.3 L Chloride 114 H Carbon Dioxide 16 L BUN 28 H Creatinine 1.62 H D Glucose 85 Calcium 8.6 Urine 02/01/24 Range/Units 16:01 Urine Color Dark Yellow Urine Appearance Clear (Clear) Urine pH 5.5 (4.5-7.5) Ur Specific [place] 1.019 (1.000-1.030) Urine Protein 1+ H (Negative) Urine Glucose (UA) Negative (Negative)
[2024-02-03 04:15] LABS: Hemoglobin 9.5 g/dl (14.0-18.0); Mean Corpuscular Hemoglobin 27.4 pg (25.0-34.0); Mean Corpuscular Hgb Conc 33.9 g/dL (32.0-36.0); Mean Corpuscular Volume 80.7 fL (80.0-100.0); Mean Platelet Volume 9.4 fL (9.4-12.4); Platelet Count 151 K/uL (130-400); RDW Standard Deviation 43.8 fL (36.4-46.3); Red Blood Count 3.47 M/uL (4.70-6.10); White Blood Count 5.65 K/ul (4.8-10.8)
[2024-02-03 04:32] LABS: Calcium 8.1 mg/dl (8.6-10.3); Creatinine Clr Calc Pharmacy 86.2 ml/min; Est GFR (African American) 94.4 ml/min; Est GFR (Non-African American) 81.4 ml/min; Magnesium 1.5 mg/dl (1.7-2.4); Potassium 3.3 mmol/L (3.5-5.1)
[2024-02-03] MEDS: POTASSIUM CHLORIDE CRTAB 20 MEQ TABCR PO STA (05:59)
[2024-02-03] MEDS: MAGNESIUM SULFATE / D5W 1 GM/100 ML BAG IV ONE (05:59)
[2024-02-03] MEDS: METOPROLOL SUCC 50MG EXT REL TAB PO STA (06:19)
[2024-02-03] MEDS: ENOXAPARIN INJ 40 MG/0.4 ML SYR SQ SCH (07:41)
[2024-02-03] MEDS: METOPROLOL SUCC 50MG EXT REL TAB PO SCH (07:42)
--- NOTE | 2024-02-03 08:39 | Surgery Progress Note ---
Date of Service February 03, 2024 Assessment & Plan (1) Diarrhea: Plan: He has no signs of obstruction clinically Advance diet as tolerated he can be discharged from a surgical standpoint Surgery will sign off, please call with any questions or concerns Admission and Anticipated Discharge Date Admission Date: February 01, 2024 Subjective Patient seen and examined. He still having some bowel movements. No nausea or vomiting. No abdominal pain. Afebrile. Review of Systems Constitutional: no fever and no chills Physical Exam Constitutional: WD/WN, vitals as above Gastrointestinal (Abdomen): Inspection/Auscultation: abdomen normal to inspection; abdomen not distended Percussion/Palpation: abdomen soft; abdomen nontender and no guarding Results & Data Vital Signs (Past 12 Hours) Vital Signs Temp Pulse Pulse Resp BP Pulse Ox O2 Del Method 02/03/24 07:36 36.7 C 60 20 120/64 97 Room Air 02/03/24 03:52 36.7 C 61 18 120/57 L 98 Room Air 02/03/24 01:28 58 L 02/02/24 23:14 36.3 C L 60 18 114/62 98 Room Air PG Care Time/CCT Total # of Minutes Spent Total Time Spent with Patient: Total time spent is greater than 50% in coordination of care (as documented) at patient's floor/unit and/or counseling patient: Coding Level of Care Code 97799 SUB INP/OBS CARE 11/11MIN Diagnoses Diarrhea R19.7
[2024-02-03] MEDS: MAGNESIUM CHLORIDE W/CALCIUM 64MG DELAYED REL TAB PO SCH (10:36)
--- NOTE | 2024-02-03 13:41 | Hospitalist Progress Note ---
Date of Service February 03, 2024 Assessment & Plan (1) Acute diarrhea: Plan: Diarrhea Unclear etiology DD: Gastroenteritis, ? Secondary to home medications --CT ABD: Fluid-filled loops of large and small bowel seen throughout the abdomen. This suggests a gastroenteritis/diarrheal illness. A prominent loop of small bowel within the deep pelvis without a definite transition point. A partial small bowel obstruction is considered less likely but not entirely excluded. If the patient's symptoms progress consider follow-up abdomen and pelvis CT. Mild retroperitoneal lymphadenopathy which is nonspecific. This could be related to the suspected gastroenteritis. 3 month abdomen and pelvis CT follow-up recommended to ensure resolution. -- Stool PCR negative --Stool for C. difficile negative Received IV fluids Advised to follow-up with gastroenterology as outpatient Imodium as needed Will need repeat CT as outpatient to ensure resolution of lymphadenopathy Imodium as needed (2) JESSICA (acute kidney injury): Plan: Likely prerenal secondary to GI losses Hold home diuretics, Entresto--resume as able Also hold Bactrim for now Received IV fluids Avoid nephrotoxic agents as able Cr 1.0 today (3) CLL (chronic lymphocytic leukemia): Plan: Chronic lymphatic leukemia On oral treatment Sees Dr. Wang oncology as outpatient Resume home medications as able (4) History of atrial fibrillation: Plan: History of atrial fibrillation S/P ablation years ago Continue metoprolol Hypomagnesemia Replete electrolytes as needed (5) SBO (small bowel obstruction): Plan: Suspected partial SBO CT ABD as above Appreciate surgery input Tolerated low fiber diet Monitor Renal cyst Renal USD:9 mm left renal lower pole lesion which favors a cyst. This co rresponds to the CT abnormality. One year follow-up is recommended to ensure stability due to its small size. A 1 cm right lower pole cyst. Follow-up as outpatient GERD Continue with PPI Hypertension Continue metoprolol Monitor DVT prophylaxis Lovenox SQ CODE STATUS Full Code Disposition Home Admission and Anticipated Discharge Date Admission Date: February 01, 2024 Subjective Patient is seen and examined at bedside Diarrhea much improved per patient No new complaints Prefers to be discharged home today Denies any nausea, vomiting, chest pain, dyspnea Renal function normalized Review of Systems Review of Systems: All systems reviewed & are unremarkable except as noted in Subjective Physical Exam Physical Exam: Physical Exam: Vitals signs as noted above General Appearance:Moderately built and nourished, no apparent distress Head: normocephalic, Atraumatic Eyes: normal inspection, EOMI Neck: supple, Trachea midline Respiratory/Chest: Normal breath sounds, CTA, No accessory muscle use Cardiovascular: S1, S2, No murmur Abdomen/GI:Soft, Non tender, Bowel sounds present Extremities/Musculoskeletal:normal inspection, no edema Neurologic/Psych:AAOX3, grossly no focal neurological deficits Skin: normal color, warm Results & Data Results & Data Vital Signs (Past 12 Hours) Vital Signs Temp Pulse Pulse Resp BP Pulse Ox O2 Del Method 02/03/24 11:31 36.5 C 60 18 122/71 100 Room Air 02/03/24 08:53 61 02/03/24 07:36 36.7 C 60 20 120/64 97 Room Air 02/03/24 03:52 36.7 C 61 18 120/57 L 98 Room Air Laboratory Results Short CBC 02/03/24 Range/Units 03:25 WBC 5.65 (4.8-10.8) K/ul Hgb 9.5 L (14.0-18.0) g/dl Hct 28.0 L (42.0-52.0) % Plt Count 151 (130-400) K/uL BMP 02/03/24 03:25 Sodium 139 Potassium 3.3 L Chloride 115 H Carbon Dioxide 18 L BUN 16 Creatinine 1.00 D Glucose 85 Calcium 8.1 L
--- NOTE | 2024-02-03 13:55 | Discharge Summary ---
Date of Service February 03, 2024 Admission HPI Per Admitting Provider He is a 58 years old male with significant past medical history of atrial fibrillation status post ablation, CLL with ongoing oral chemotherapy, GERD, hypertension apparently has been complaining of diarrhea since sixth of this month. His diarrhea seems to be watery with some discomfort/pain in the abdomen and some distention. The diarrhea could be up to 8 times a day and he has anorexia with nausea and vomited once with it. No history of blood in the stool, no fever and or chills no history of travel and no history of any other persons involved with diarrhea that he mixes with. Has been eating and drinking that way he is supposed to be. Denies any chest pain, palpitation or shortness of breath. CT of the abdomen did show possible ileitis with intestinal distention and noted to have acute renal failure likely secondary to dehydration and complicated by use of ARB, spironolactone and also Bactrim. Admission Exam Per Admitting Provider Physical Exam: Sitting at the edge of the bed without any acute distress Constitutional: well developed, well nourished, + ill appearing and average body habitus Eyes: PERRL, conjunctivae normal, anicteric sclerae ENMT: external ear and nose normal, oropharynx normal Neck: trachea midline, no thyromegaly Cardiovascular: Rate/Rhythm: regular rate and regular rhythm; not tachycardic Heart Sounds: normal S1 and normal S2; no murmur Extremities: no edema Gastrointestinal (Abdomen): Inspection/Auscultation: + abdomen distended; + abnormal bowel sounds (Decreased) Percussion/Palpation: abdomen soft; abdomen nontender and no guarding Musculoskeletal: No acute arthritis involving any of the joint Neurologic: normal touch/pain/proprioception and moves all extremities; no focal motor deficits Psychiatric: A+Ox3, euthymic affect Lymphatic: no cervical or axillary lymphadenopathy Principal Diagnosis Diarrhea likely gastroenteritis Acute kidney injury Hypokalemia Hypomagnesemia Renal cyst Discharge Data Allergies Allergy/AdvReac Type Severity Reaction Status Date / Time amoxicillin AdvReac Diarrhea Verified 02/01/24 16:51 Consultations 02/01/24 16:34 ED Decision to Admit Stat 02/02/24 11:35 Consult General Surgery Routine Procedures Performed Laboratory Results WBC 5.65 K/ul (4.8-10.8) 02/03/24 03:25 RBC 3.47 M/uL (4.70-6.10) L 02/03/24 03:25 Hgb 9.5 g/dl (14.0-18.0) L 02/03/24 03:25 Hct 28.0 % (42.0-52.0) L 02/03/24 03:25 MCV 80.7 fL (80.0-100.0) 02/03/24 03:25 MCH 27.4 pg (25.0-34.0) 02/03/24 03:25 MCHC 33.9 g/dL (32.0-36.0) 02/03/24 03:25 RDW Std Deviation 43.8 fL (36.4-46.3) 02/03/24 03:25 RDW Coeff of Kayy 15.0 % (11.5-14.5) H 02/03/24 03:25 Plt Count 151 K/uL (130-400) 02/03/24 03:25 MPV 9.4 fL (9.4-12.4) 02/03/24 03:25 Immature Gran % (Auto) 1.0 % 02/02/24 04:51 Neut % (Auto) 69.1 % 02/02/24 04:51 Lymph % (Auto) 24.4 % 02/02/24 04:51 [place] % (Auto) 4.3 % 02/02/24 04:51 Eos % (Auto) 0.6 % 02/02/24 04:51 Baso % (Auto) 0.6 % 02/02/24 04:51 Neut # (Auto) 9.86 K/uL (1.40-6.50) H 02/02/24 04:51 Lymph # (Auto) 3.47 K/uL (1.20-3.40) H 02/02/24 04:51 [place] # (Auto) 0.61 K/uL (0.11-0.59) H 02/02/24 04:51 Eos # (Auto) 0.08 K/uL (0.00-0.50) 02/02/24 04:51 Baso # (Auto) 0.08 K/uL (0.00-0.20) 02/02/24 04:51 Immature Gran # (Auto) 0.14 K/uL (0.01-0.20) 02/02/24 04:51 Sodium 139 mmol/L (136-145) 02/03/24 03:25 Potassium 3.3 mmol/L (3.5-5.1) L 02/03/24 03:25 Chloride 115 mmol/L (98-107) H 02/03/24 03:25 Carbon Dioxide 18 mmol/L (21-32) L 02/03/24 03:25 Anion Gap 6 (3-11) 02/03/24 03:25 BUN 16 mg/dl (6-23) 02/03/24 03:25 Creatinine 1.00 mg/dl (0.6-1.4) D 02/03/24 03:25 Est Cr Clr Drug Dosing 86.2 ml/min 02/03/24 03:25 Est GFR ( Amer) 94.4 ml/min 02/03/24 03:25 Est GFR (Non-Af Amer) 81.4 ml/min 02/03/24 03:25 BUN/Creatinine Ratio 16.0 (10-20) 02/03/24 03:25 Glucose 85 mg/dl (70-99(Fasting)) 02/03/24 03:25 Calcium 8.1 mg/dl (8.6-10.3) L 02/03/24 03:25 Phosphorus 3.5 mg/dl (2.5-4.9) D 02/02/24 04:51 Magnesium 1.5 mg/dl (1.7-2.4) L 02/03/24 03:25 Total Bilirubin 0.4 mg/dl (0.2-1.0) 02/01/24 13:34 AST 8 U/L (13-39) L 02/01/24 13:34 ALT 6 U/L (7-52) L 02/01/24 13:34 Alkaline Phosphatase 171 U/L (34-104) H 02/01/24 13:34 Total Protein 6.5 gm/dl (6.0-8.3) 02/01/24 13:34 Albumin 4.0 gm/dl (3.4-5.0) 02/01/24 13:34 Globulin 2.5 gm/dl (2.5-4.0) 02/01/24 13:34 Albumin/Globulin Ratio 1.6 (0.9-2) 02/01/24 13:34 Lipase 41 U/L (11-82) 02/01/24 13:34 Urine Color Dark Yellow 02/01/24 16: Urine Appearance Clear (Clear) 02/01/24 16: Urine pH 5.5 (4.5-7.5) 02/01/24 16: Ur Specific [place] 1.019 (1.000-1.030) 02/01/24 16: Urine Protein 1+ (Negative) H 02/01/24 16: Urine Glucose (UA) Negative (Negative) 02/01/24 16: Urine Ketones Negative (Negative) 02/01/24 16: Urine Blood Negative (Negative) 02/01/24 16: Urine Nitrite Negative (Negative) 02/01/24 16: Urine Bilirubin Negative (Negative) 02/01/24 16: Urine Urobilinogen Negative (Negative) 02/01/24 16: Ur Leukocyte Esterase Negative (Negative) 02/01/24 16: Urine WBC (Auto) 0-5 /hpf (0-5) 02/01/24 16: Urine RBC (Auto) 0-2 /hpf (0-2) 02/01/24 16: U Hyaline Cast (Auto) >20 /lpf (0-2) H 02/01/24 16: U Epithel Cells (Auto) 3-5 /hpf (0-2) H 02/01/24 16:01 Urine Bacteria (Auto) None Seen (None Seen) 02/01/24 16: WBC Casts Present /lpf (None Prsent) A 02/01/24 16: Stl C. cayetanensis PCR Not Detected (NotDetected) 02/01/24 16: Stool Rotavirus A PCR Not Detected (NotDetected) 02/01/24 16: Stl Adenov F 40/41 PCR Not Detected (NotDetected) 02/01/24 16: Stool Astrovirus (PCR) Not Detected (NotDetected) 02/01/24 16: Stool Campylobacter PCR Not Detected (NotDetected) 02/01/24 16: Stl C. diff Tox B Gene Negative Cdiff Gene (Neg) 02/01/24 16: Stool Cryptosporidium PCR Not Detected (NotDetected) 02/01/24 16:01 Stl E.coli Shiga Tox PCR Not Detected (NotDetected) 02/01/24 16:01 Stl Enterotoxigenic E PCR Not Detected (NotDetected) 02/01/24 16:01 Stool EPEC (PCR) Not Detected (NotDetected) 02/01/24 16:01 Stool EAEC (PCR) Not Detected (NotDetected) 02/01/24 16:01 Stl E. histolytica PCR Not Detected (NotDetected) 02/01/24 16:01 Stool Giardia Lamblia PCR Not Detected (NotDetected) 02/01/24 16:01 Stool Salmonella PCR Not Detected (NotDetected) 02/01/24 16:01 Stool Sapovirus (PCR) Not Detected (NotDetected) 02/01/24 16:01 Stl P. shigelloides PCR Not Detected (NotDetected) 02/01/24 16:01 Stl Shigella/EIEC PCR Not Detected (NotDetected) 02/01/24 16:01 St Y.enterocolitica PCR Not Detected (NotDetected) 02/01/24 16:01 Stool Vibrio (PCR) Not Detected (NotDetected) 02/01/24 16:01 Stl Vibrio cholerae PCR Not Detected (NotDetected) 02/01/24 16:01 Stl Norovirus GI/GII PCR Not Detected (NotDetected) 02/01/24 16:01 Impressions Abdomen/Pelvis CT 02/01/24 15:[address] WITHOUT CONTRAST CT DOSE: 1191.22 mGy.cm HISTORY: diarrhea for 2 weeks, TECHNIQUE: Multiaxial CT images of the abdomen and pelvis were performed without contrast. A dose lowering technique was utilized adhering to the principles of ALARA. COMPARISON STUDY: None. FINDINGS: Tree-in-bud nodular opacities within the lung bases most pronounced within the left lower lobe. No pneumoperitoneum. No pneumatosis. No acute fractures. Small fat-containing left femoral hernia. A small diverticulum at the third portion of the duodenum. The unenhanced liver, gallbladder, pancreas, spleen, and adrenal glands unremarkable. No renal or ureteral stones. No hydronephrosis. There is a 1 cm exophytic hypodense lesion within the lower pole of the right kidney on image 202 and a 7 mm exophytic hypodense lesion within the lower pole the left kidney on image 164. The 1 cm right renal lesion favors a cyst but is technically indeterminate on this noncontrast study. The 7 mm lesion within the left kidney does not clearly represent a simple cyst. Therefore, follow-up renal ultrasound or dedicated renal MRI is recommended for further evaluation of the left renal lesion. Normal caliber abdominal aorta. Mild retroperitoneal lymphadenopathy with the dominant lymph nodes measuring 1 cm short axis diameter. Tiny fat-containing umbilical hernia. No significant pelvic lymphadenopathy. Bladder wall thickening is likely due to underdistention and chronic outlet obstruction from the enlarged prostate gland. No pelvic free fluid. No bowel wall thickening. Fluid-filled nondilated loops of large and s mall bowel seen throughout the abdomen. Single prominent loop of small bowel within the deep pelvis on image 321 measures 2.9 cm. However, no transition point to suggest a small bowel obstruction at this time. There is a 5 mm appendicolith within the mid appendix. No evidence for acute appendicitis. IMPRESSION: 1. Fluid-filled loops of large and small bowel seen throughout the abdomen. This suggests a gastroenteritis/diarrheal illness. 2. A prominent loop of small bowel within the deep pelvis without a definite transition point. A partial small bowel obstruction is considered less likely bu t not entirely excluded. If the patient's symptoms progress consider follow-up abdomen and pelvis CT. 3. Mild retroperitoneal lymphadenopathy which is nonspecific. This could be related to the suspected gastroenteritis. 3 month abdomen and pelvis CT follow- up recommended to ensure resolution. 4. A 7 mm indeterminate lesion within the left kidney. Follow-up nonemergent dedicated renal ultrasound or renal MRI is recommended for further evaluation. 5. Tree-in-bud nodular opacities within the lung bases most pronounced within the left lower lobe. This suggests a mild chronic infectious bronchiolitis. 6. Additional findings as described above. ACT 112: Positive. There are findings on this exam that require communication between the performing entity and the patient following Patient Test Result Information Act ([place] Act 112) guidelines. Electronically signed by: Romel Bess M.D. 02/01/2024 4:04 PM Renal Ultrasound 02/02/24 08:27 RENAL ULTRASOUND HISTORY: Follow-up renal lesion. Abnormal CT. COMPARISON: Abdomen and pelvis CT 02/01/2024. FINDINGS: Right kidney: 11.2 cm. There is a 1 cm exophytic lower pole cyst. No solid renal masses identified. No hydronephrosis. Normal corticomedullary differentiation and cortical thickness. Left kidney: 10.3 cm. There is 9 mm lower pole lesion which also favors a cyst. This corresponds to the CT abnormality. No hydronephrosis. Normal corticomedullary differentiation and cortical thickness. Bladder: No bladder wall thickening. The bilateral ureteral jets were not identified. The prostate gland is enlarged. IMPRESSION: 1. A 9 mm left renal lower pole lesion which favors a cyst. This corresponds to the CT abnormality. One year follow-up is recommended to ensure stability due to its small size. 2. A 1 cm right lower pole cyst. 3. Prostatomegaly. ACT 112: Negative or not required by law. Electronically signed by: Romel Bess M.D. 02/02/2024 2:16 PM KUB X-Ray 02/02/24 08:28 KUB CLINICAL HISTORY: Generalized abdominal pain. Obstruction. FINDINGS: 3 AP, portable, supine abdominal radiographs are correlated with abdominal CT dated 02/01/2024. There is persistent gaseous distention of the small bowel loops which measure up to 3 cm diameter. Gas is seen throughout the colon. No evidence of intraperitoneal free air is identified on these supine images. There are no abnormal abdominal calcifications. The bony structures appear intact. Moderate lumbosacral spondylosis is observed. IMPRESSION: There is persistent gaseous distention of the small bowel loops as above. When correlated with yesterday's CT scan this could represent a nonspecific enteritis. No high-grade bowel obstruction is identified. A partial small bowel obstruction is not excluded and clinical correlation will be required. Electronically signed by: Rolando Leone M.D. 02/02/2024 9:33 AM Ordered Studies 02/01/24 15:25 CT abd pelvis wo con Stat 02/02/24 08:27 US Renal Bladder [US renal/blad retro comp] Routine Hospital Course (1) Acute diarrhea: Diarrhea Unclear etiology DD: Gastroenteritis, ? Secondary to home medications --CT ABD: Fluid-filled loops of large and small bowel seen throughout the ab domen. This suggests a gastroenteritis/diarrheal illness. A prominent loop of small bowel within the deep pelvis without a definite transition point. A partial small bowel obstruction is considered less likely but not entirely excluded. If the patient's symptoms progress consider follow-up abdomen and pelvis CT. Mild retroperitoneal lymphadenopathy which is nonspecific. This could be related to the suspected gastroenteritis. 3 month abdomen and pelvis CT follow-up recommended to ensure resolution. -- Stool PCR negative --Stool for C. difficile negative Received IV fluids Advised to follow-up with gastroenterology as outpatient Imodium as needed Will need repeat CT as outpatient to ensure resolution of lymphadenopathy Imodium as needed (2) JESSICA (acute kidney injury): Likely prerenal secondary to GI losses Hold home diuretics, Entresto--resume as able Also hold Bactrim for now Received IV fluids Avoid nephrotoxic agents as able Cr 1.0 today (3) CLL (chronic lymphocytic leukemia): Chronic lymphatic leukemia On oral treatment Sees Dr. Wang oncology as outpatient Resume home medications as able (4) History of atrial fibrillation: History of atrial fibrillation S/P ablation years ago Continue metoprolol Hypomagnesemia Replete electrolytes as needed (5) SBO (small bowel obstruction): Suspected partial SBO CT ABD as above Appreciate surgery input Tolerated low fiber diet Monitor Renal cyst Renal USD:9 mm left renal lower pole lesion which favors a cyst. This corresponds to the CT abnormality. One year follow-up is recommended to ensure stability due to its small size. A 1 cm right lower pole cyst. Follow-up as outpatient GERD Continue with PPI Hypertension Continue metoprolol Monitor DVT prophylaxis Lovenox SQ CODE STATUS Full Code Disposition Home Total Time Total Time Spent Total Time Spent (In Minutes): 56 minutes Discharge Plan Discharge Items Patient Disposition: Home - Self-Care Reason For Visit: DIARRHEA,ACUTE RENAL FAILURE,ILEUS Discharge Diagnosis: Diarrhea likely gastroenteritis Acute kidney injury Hypokalemia Hypomagnesemia Renal cyst Activity: Per Instructions section Exercise/Sports: Wait until after follow-up appointment Non-emergency contact: Primary Care Provider and Oncologist Call non-emergency contact if: you have any medication questions, your symptoms worsen, your pain is concerning for you and you have a fever Follow-up/Referrals: Anne Marie Mendoza CRNP [Primary Care Provider] - Diet: Low Fiber Addtl Attending Provider Instructions: Follow-up with your primary care physician Woody REDMOND in 1 week Follow-up with your oncologist Dr. Wang in 1 week Consider following with your dog pound attendant if your diarrhea is not resolved --Obtain repeat CT abdomen pelvis in 3 months to ensure resolution of retroperitoneal lymphadenopathy --Consider following up with your primary care physician/urologist for further evaluation of renal cyst which was incidentally noted on CT scan --Discussed with your oncologist regarding Imbruvica likely contributing to diarrhea. Further recommendations as per your oncologist -- Can use Imodium as needed for diarrhea as advised. Seek immediate medical attention if your symptoms reoccur or worsen Please take all medications as instructed on discharge list below. Please call if you have any questions or problems. You can reach a [facility] hospitalist on duty at [facility] 24 hours a day by calling [phone] Pending Studies at Discharge: No Stand-Alone Forms: [facility], Smoking Cessation Medications and DC Order Prescriptions: New loperamide 2 mg Capsule 2 mg PO Q6H PRN (Reason: loose stool) Qty: 30 0RF Mag 64 64 mg Tablet,Delayed Release (Dr/Ec) 64 mg PO BID Qty: 15 0RF potassium chloride 20 mEq tablet extended release 20 meq PO DAILY Qty: 5 0RF Continued multivitamin Tablet 1 tab PO QAM aspirin 325 mg Tablet 325 mg PO DAILY metoprolol succinate 100 mg Tablet Extended Release 24 Hr 100 mg PO QAM omeprazole 20 mg Tablet,Delayed Release (Dr/Ec) 20 mg PO QAM Entresto 24-26 mg Tablet 1 tab PO BID ferrous sulfate [FeroSul] 325 mg (65 mg iron) tablet 325 mg PO 3XWK vitamin B complex [Super B Complex] Capsule 1 cap PO DAILY Held spironolactone 25 mg Tablet 25 mg PO QAM Hold Instructions: Until further recommendations from your primary care physician furosemide 20 mg Tablet 20 mg PO QAM Hold Instructions: Until further recommendations from your primary care physician Imbruvica 140 mg capsule 420 mg PO DAILY Hold Instructions: Until further recommendations from your primary care physician/oncologist sulfamethoxazole-trimethoprim 800-160 mg tablet 1 tab PO MOWEFR Hold Instructions: Until further recommendations from your primary care physician Discharge Orders: Discharge Order (Routine); Ordered 02/03/24 Ordered By: Devin Castrejon Admission Data Admit Date/Time: 02/01/24 17:16 Attending Provider: Devin Castrejon Admit Provider: Dev Hsieh Primary Care Provider: Anne Marie Mendoza Other Providers: Dev Hsieh; Micheal Alamo; Niko Toro; Lucy Bazzi; Harvey Moreno; Ander Judge; Aylin Gaytan; Lela Rizzo; Jim Perry Jr; Yousif Nicole; Evan Monroy; Bertha Pinto
== END 2024-02-03 15:00 | disposition home or self-care (01) | DRG 392 ==
LOC: ED 13:11 → SUATTDRO 17:16 → 2W 17:16